=== PATIENT | male | born 1990 | race Two or more races ===

== ENCOUNTER 2017-10-13 18:53 | Emergency (ER) | payer SELFPAY ==
[2017-10-13] VITALS (20 sets, daily range): BP systolic 148–159; BP diastolic 87–102
[~2017-10-13] VITALS: Ht 177.8 cm; Wt 72.6 kg
[2017-10-13] MEDS ORDERED: Haloperidol 5mg/ml Inj IM ONE ×2 (19:00→21:30)
[2017-10-13] MEDS ORDERED: DiphenhydrAMINE 50mg/ml Inj IM ONE (19:00)
[2017-10-13] MEDS ORDERED: LORazepam Inj 2mg/ml 1ml IM ONE ×3 (19:00→23:00)
--- NOTE | 2017-10-13 19:16 | Emergency Room Report ---
History of Present Illness General Chief Complaint: Behavioral Complaint Source: Patient, EMS (Jose Antonio Bella) Present Illness HPI The patient is a 26-year-old male brought in by EMS after increased agitation. The patient was reportedly walking in and out of traffic. The patient was brought in by EMS along with [employer]. He was noted to be markedly agitated. History is markedly limited by patient's poor cooperation. (Jose Antonio Bella) Allergies: Coded Allergies: UNABLE TO ASSESS (Unverified , 10/13/17) Patient History Past Medical History: see triage record Reviewed Nursing Documentation: PMH: Agreed; PSxH: Agreed (Jose Antonio Bella) Nursing Documentation-PMH Past Medical History Deferred: Pt Cognitively Impaired Past Medical History: Deferred (Jose Antonio Bella) Review of Systems All Other Systems: negative except mentioned in HPI (Jose Antonio Bella) Physical Exam Vital Signs Date Time Temp Pulse Resp B/P (MAP) Pulse Ox O2 Delivery O2 Flow Rate FiO2 10/13/17 18:49 138 24 125/79 99 Room Air Sp02 EP Interpretation: reviewed, normal General Appearance: alert/responsive, no apparent distress, GCS 15, non-toxic Head: atraumatic Eyes: PERRL, lids + conjunctiva normal ENT: hearing intact, no angioedema Neck: supple/symm/no masses, no meningismus Respiratory: effort normal, no wheezing, chest symmetrical Cardiovascular: regular rate, rhythm, no edema Cardiovascular #2: 2+ carotid (R), 2+ carotid (L), 2+ dorsalis pedis (R), 2+ dorsalis pedis (L) Gastrointestinal: non-tender, no mass, non-distended, no rebound/guarding, normal bowel sounds Musculoskeletal: gait & station normal, strength & tone normal, normal ROM, non -tender Neurologic: oriented x3, sensory intact, normal speech Psychiatric: anxious, other Skin: no rash, well hydrated Lymphatic: normal inspection (Jose Antonio Bella) Medical Decision Making Restraint Attestation I, Jose Antonio Bella MD, have personally evaluated this patient. Laboratory tests have been reviewed and addressed accordingly. The patient is deemed to present a danger to themselves and/or others. This is based on the exam, history ( provided by patient, EMS/[employer] and/or family) and observed or reported behavior. Attempts for non-invasive measures have been considered and/or attempted, however, have been futile. It is in the best interest of the nursing staff, the patient, and others involved in this patient's care that behavioral restraints be applied. Patient evaluation reveals the following: Marked agitation and combativeness. (Jose Antonio Bella) Restraint Attestation On reassessment of the patient, the patient will continue to require restraints for the safety of the patient, the nursing staff and others involved in the care of this patient. (Silviano Das DO) Diagnostic Impression: Primary Impression: Agitation Additional Impression: Methamphetamine abuse ER Course Patient presented for psychosis. Differential diagnoses include substance abuse, psychosis, bipolar disorder, depression, malingering Because of complexity of patient's case laboratory testing and imaging studies were ordered. The patient was given IM medications for sedation due to marked agitation he was placed in restraints. The patient will be evaluated by psychiatry. Labs Test 10/13/17 23:20 10/14/17 02:00 10/14/17 06:55 Differential Total Cells Counted 100 Neutrophils % (Manual) 84 % (45-75) Lymphocytes % (Manual) 4 % (20-45) Monocytes % (Manual) 11 % (1-10) Eosinophils % (Manual) 0 % (0-3) Basophils % (Manual) 0 % (0-2) Band Neutrophils 1 % (0-8) Platelet Estimate Adequate Platelet Morphology Normal Sodium Level 138 MMOL/L (136-145) Potassium Level 4.0 MMOL/L (3.5-5.1) Chloride Level 99 MMOL/L (98-107) Carbon Dioxide Level 22 MMOL/L (21-32) Anion Gap 17 mmol/L (5-15) Blood Urea Nitrogen 36 mg/dL (7-18) Creatinine 1.3 MG/DL (0.55-1.30) Estimat Glomerular Filtration Rate > 60 mL/min (>60) Glucose Level 95 MG/DL (74-106) Calcium Level 9.5 MG/DL (8.5-10.1) Total Bilirubin 2.1 MG/DL (0.2-1.0) Direct Bilirubin 0.4 MG/DL (0.0-0.3) Aspartate Amino Transf (AST/SGOT) 102 U/L (15-37) Alanine Aminotransferase (ALT/SGPT) 57 U/L (12-78) Alkaline Phosphatase 93 U/L (46-116) Total Protein 7.7 G/DL (6.4-8.2) Albumin 5.1 G/DL (3.4-5.0) Globulin 2.6 g/dL Albumin/Globulin Ratio 2.0 (1.0-2.7) Salicylates Level 0.9 ug/mL (2.8-20) Acetaminophen Level < 2 MCG/ML (10-30) Serum Alcohol < 3 mg/dL Urine Opiates Screen Negative (NEGATIVE) Urine Barbiturates Screen Negative (NEGATIVE) Phencyclidine (PCP) Screen Negative (NEGATIVE) Urine Amphetamines Screen Positive (NEGATIVE) Urine Benzodiazepines Screen Negative (NEGATIVE) Urine Cocaine Screen Negative (NEGATIVE) Urine Marijuana (THC) Screen Positive (NEGATIVE) White Blood Count 16.2 K/UL (4.8-10.8) Red Blood Count 4.88 M/UL (4.70-6.10) Hemoglobin 15.6 G/DL (14.2-18.0) Hematocrit 41.9 % (42.0-52.0) Mean Corpuscular Volume 86 FL (80-99) Mean Corpuscular Hemoglobin 32.0 PG (27.0-31.0) Mean Corpuscular Hemoglobin Concent 37.2 G/DL (32.0-36.0) Red Cell Distribution Width 10.3 % (11.6-14.8) Platelet Count 231 K/UL (150-450) Mean Platelet Volume 7.6 FL (6.5-10.1) Neutrophils (%) (Auto) 84.8 % (45.0-75.0) Lymphocytes (%) (Auto) 6.6 % (20.0-45.0) Monocytes (%) (Auto) 8.2 % (1.0-10.0) Eosinophils (%) (Auto) 0.0 % (0.0-3.0) Basophils (%) (Auto) 0.4 % (0.0-2.0) (Jose Antonio Bella) ER Course Please for the initial note for the history exam and presentation At this time patient shows positive amphetamine in the drug screen Patient's white blood cell count is also elevated likely secondary to the drug abuse Patient further hydrated Will have repeat CBC to ensure decrease of the white blood cell Patient also requiring psychiatric clearance And requires further disposition Labs Test 10/13/17 23:20 10/14/17 02:00 White Blood Count 22.4 K/UL (4.8-10.8) Red Blood Count 5.78 M/UL (4.70-6.10) Hemoglobin 17.7 G/DL (14.2-18.0) Hematocrit 49.6 % (42.0-52.0) Mean Corpuscular Volume 86 FL (80-99) Mean Corpuscular Hemoglobin 30.6 PG (27.0-31.0) Mean Corpuscular Hemoglobin Concent 35.6 G/DL (32.0-36.0) Red Cell Distribution Width 10.1 % (11.6-14.8) Platelet Count 309 K/UL (150-450) Mean Platelet Volume 7.4 FL (6.5-10.1) Neutrophils (%) (Auto) % (45.0-75.0) Lymphocytes (%) (Auto) % (20.0-45.0) Monocytes (%) (Auto) % (1.0-10.0) Eosinophils (%) (Auto) % (0.0-3.0) Basophils (%) (Auto) % (0.0-2.0) Differential Total Cells Counted 100 Neutrophils % (Manual) 84 % (45-75) Lymphocytes % (Manual) 4 % (20-45) Monocytes % (Manual) 11 % (1-10) Eosinophils % (Manual) 0 % (0-3) Basophils % (Manual) 0 % (0-2) Band Neutrophils 1 % (0-8) Platelet Estimate Adequate Platelet Morphology Normal Sodium Level 138 MMOL/L (136-145) Potassium Level 4.0 MMOL/L (3.5-5.1) Chloride Level 99 MMOL/L (98-107) Carbon Dioxide Level 22 MMOL/L (21-32) Anion Gap 17 mmol/L (5-15) Blood Urea Nitrogen 36 mg/dL (7-18) Creatinine 1.3 MG/DL (0.55-1.30) Estimat Glomerular Filtration Rate > 60 mL/min (>60) Glucose Level 95 MG/DL (74-106) Calcium Level 9.5 MG/DL (8.5-10.1) Total Bilirubin 2.1 MG/DL (0.2-1.0) Direct Bilirubin 0.4 MG/DL (0.0-0.3) Aspartate Amino Transf (AST/SGOT) 102 U/L (15-37) Alanine Aminotransferase (ALT/SGPT) 57 U/L (12-78) Alkaline Phosphatase 93 U/L (46-116) Total Protein 7.7 G/DL (6.4-8.2) Albumin 5.1 G/DL (3.4-5.0) Globulin 2.6 g/dL Albumin/Globulin Ratio 2.0 (1.0-2.7) Salicylates Level 0.9 ug/mL (2.8-20) Acetaminophen Level < 2 MCG/ML (10-30) Serum Alcohol < 3 mg/dL Urine Opiates Screen Negative (NEGATIVE) Urine Barbiturates Screen Negative (NEGATIVE) Phencyclidine (PCP) Screen Negative (NEGATIVE) Urine Amphetamines Screen Positive (NEGATIVE) Urine Benzodiazepines Screen Negative (NEGATIVE) Urine Cocaine Screen Negative (NEGATIVE) Urine Marijuana (THC) Screen Positive (NEGATIVE) (Silviano Das DO) Last Vital Signs Date Time Temp Pulse Resp B/P (MAP) Pulse Ox O2 Delivery O2 Flow Rate FiO2 10/13/17 18:49 138 24 125/79 99 Room Air Status: improved (Jose Antonio Bella) Status: improved Reevaluation Impression Patient more calm after multiple interventions receiving further hydration, will require repeat CBC and psychiatric clearance, (Silviano Das DO) Disposition: ELOPED Condition: Stable Jose Antonio Bella Oct 13, 2017 19:16 Silviano Das DO Oct 14, 2017 04:57
[2017-10-14] VITALS (20 sets, daily range): BP systolic 114–152; BP diastolic 74–99
[2017-10-14 00:28] LABS: HEMATOCRIT 49.6 % (42.0-52.0); HEMOGLOBIN 17.7 G/DL (14.2-18.0); MEAN CORPUSCULAR VOLUME 86 FL (80-99); PLATELET COUNT 309 K/UL (150-450); RED BLOOD COUNT 5.78 M/UL (4.70-6.10); RED CELL DISTRIBUTION WIDTH 10.1 % (11.6-14.8)
[2017-10-14 00:29] LABS: ANION GAP 17 mmol/L (5-15); CARBON DIOXIDE 22 MMOL/L (21-32); CHLORIDE 99 MMOL/L (98-107); SODIUM 138 MMOL/L (136-145)
[2017-10-14 00:36] LABS: WHITE BLOOD COUNT 22.4 K/UL (4.8-10.8)
[2017-10-14 01:00] LABS: ALANINE AMINOTRANSFERASE 57 U/L (12-78); ALBUMIN 5.1 G/DL (3.4-5.0); ALKALINE PHOSPHATASE 93 U/L (46-116); ASPARTATE AMINO TRANSFERASE 102 U/L (15-37); BILIRUBIN,TOTAL 2.1 MG/DL (0.2-1.0); BLOOD UREA NITROGEN 36 mg/dL (7-18); CALCIUM 9.5 MG/DL (8.5-10.1); CREATININE 1.3 MG/DL (0.55-1.30)
[2017-10-14 01:16] LABS: BILIRUBIN,DIRECT 0.4 MG/DL (0.0-0.3)
[2017-10-14 07:17] LABS: BASOPHILS % (AUTO) 0.4 % (0.0-2.0); HEMATOCRIT 41.9 % (42.0-52.0); HEMOGLOBIN 15.6 G/DL (14.2-18.0); LYMPHOCYTES % (AUTO) 6.6 % (20.0-45.0); MEAN CORPUSCULAR VOLUME 86 FL (80-99); MONOCYTES % (AUTO) 8.2 % (1.0-10.0); NEUTROPHILS % (AUTO) 84.8 % (45.0-75.0); PLATELET COUNT 231 K/UL (150-450); RED BLOOD COUNT 4.88 M/UL (4.70-6.10); RED CELL DISTRIBUTION WIDTH 10.3 % (11.6-14.8); WHITE BLOOD COUNT 16.2 K/UL (4.8-10.8)
[2017-10-14] MEDS ORDERED: fluPHENAZine Decanoate 25mg Inj IM ONE (16:45)
--- NOTE | 2017-10-15 04:16 | Consultation ---
DATE OF CONSULTATION: 10/14/2017 HISTORY OF PRESENT ILLNESS: The patient is a 26-year-old male with unknown psychiatric history, who was brought in to the emergency room on 10/13/2017. He was brought in by EMS along with [employer]. Apparently, the patient was agitated and was walking in and out of the traffic and was psychotic. Today, I received a phone call from Dr. Shaw to come and evaluate the patient per Dr. Das's request. I was able to go this afternoon and evaluate the patient. During the evaluation, the patient was sitting on gurney and was disheveled. He was in hospital gown. He was cooperative with the examination and he was oriented to self, place, situation, and time. However, he was having delusional thoughts, mainly congregation delusions. Per charge nurse Lizzy, the patient ate, did not disrobe and when I spoke to him where he will go, he did not have any address and he stated that he does not have any family nor home and he is homeless and he hangs out in different places. The patient did not have any suicidal or homicidal ideation. Did not present with any threatening behaviors. He received Ativan and antipsychotics the night before. His system was positive for amphetamines and marijuana. He denied any use of drugs prior to that. He stated he has only used once. After I finished the evaluation, I went back to Dr. Bella. At some time, we were going to send the patient to [facility], however, as the patient was not suicidal, homicidal, and was not gravely disabled, we decided to discharge the patient after the patient received a long-acting antipsychotics and during this time, Lizzy, the charge nurse, asked the patient for a social security number to possibly look for his insurance and may be place in a psych facility. The patient left while they were in the process of looking for insurance and placement. Towards end of the stay in ER and after I had finished my evaluation, we determined the patient is not an imminent danger to self or others nor gravely disabled. PAST PSYCHIATRIC HISTORY: The patient denied any psychiatric history. Denied being in a psychiatric hospital. Denied suicide attempt. Denied violent behavior. PAST MEDICAL HISTORY: He denied any medical issues. ALLERGIES: No known drug allergies. SUBSTANCE ABUSE HISTORY: The patient denied any history of opiates or pain medications. He stated he has been using marijuana, however, the crystal meth is more recent and may be he used once. SOCIAL HISTORY: The patient is homeless, not employed and he according to Lizzy, the charge nurse, the patient [employer]. MENTAL STATUS EXAMINATION: The patient is alert and oriented to time, self, place, and situation he is in. Mood was neutral. Affect was full range. Congruent with mood. Thought process was concrete. Thought content, no suicidal or homicidal ideations. Positive for delusions. Insight and judgment was impaired. Cognition is intact. ASSESSMENT: AXIS I Crystal methamphetamine and cannabis abuse versus dependence. Substance abuse psychosis, rule out schizophrenia. AXIS II Deferred. AXIS III None. AXIS IV Moderate. AXIS V Global assessment of functioning is 50. PLAN: 1. The patient is not meeting the criteria for 5150 hold as he is not a danger to self or others, not gravely disabled. 2. We were going to administer the fluphenazine, however, the patient left ER before he received the IM injection. 3. I reviewed the records, however, there is no documentation from the ER doctor nor ER nurse after 1 p.m. The patient left ER around 3 p.m. I believe. I also reviewed the ER doctor's dictations and addendum. The medical record was incomplete and documentation was incomplete. Discussed the case with Dr. Bella and Lizzy, charge nurse. Sabrina Julien JOB#: [id number] CC:
[2017-10-15] MEDS ORDERED: fluPHENAZine Decanoate 25mg Inj IM ONE (11:15)
== END 2017-10-14 17:30 | disposition home or self-care (01) ==
LOC: EDBD 18:53 → EMR 19:20
DX: R45.1 Restlessness and agitation (principal); F15.10 Other stimulant abuse, uncomplicated
CPT/HCPCS: 36415; 80053; 80307; 82248; 85007; 85025; 96361; 96372; 96374; 99284; G0480; J1200; J1630; J2680; 80329